=== PATIENT | male | born 1995 | race Caucasian/White ===

== ENCOUNTER 2021-11-09 21:50 | Emergency (ER) | payer OTHER, SELFPAY ==
[2021-11-09 21:53] VITALS: BP 123/63; PULSE 85; RESP 18; TEMP 36.2; O2SAT 100
[2021-11-09 22:03] VITALS: BP 131/76; PULSE 80; RESP 16; TEMP 36.9; O2SAT 96
[2021-11-09 23:00] VITALS: BP 100/64; PULSE 75; RESP 14; O2SAT 97
--- NOTE | 2021-11-10 00:06 | ECG_ITS ---
Measurements Intervals [place] Rate: 69 P: 87 NM: 137 QRS: 81 QRSD: 90 T: 68 QT: 361 QTc: 388 Interpretive Statements SINUS RHYTHM ST ELEVATION IN ANT/INF LEADS- PROBABLY EARLY REPOLARIZATION BASELINE ARTIFACT- I, III, AVL BORDERLINE ECG Electronically Signed On 11-10-2021 7:11:30 OPHTHALMIC SURGEON by Matteo Edgar D.O.
[2021-11-10 00:17] VITALS: BP 103/65; PULSE 74; RESP 16; O2SAT 95
[2021-11-10] MEDS: SODIUM CHLORIDE 0.9% IV 1,000 ML 999 ML IV CONT (00:23)
[2021-11-10 00:27] VITALS: BP 111/75; PULSE 75
[2021-11-10 00:28] VITALS: BP 120/88; PULSE 77
[2021-11-10 00:29] LABS: Basophils Absolute Auto 0.1 K/mm3 (0.0-0.1); Basophils Percent Auto 0.9 % (0.2-1.2); Eosinophils Absolute Auto 0.5 K/mm3 (0-0.3); Eosinophils Percent Auto 4.3 % (0-4.4); Hematocrit 45.3 % (42.0-52.0); Hemoglobin 15.5 g/dL (14.0-18.0); Immature Granulocyte Absolute 0.05 K/mm3 (0.00-0.031); Immature Granulocyte Percent A 0.5 % (0-0.5); Lymphocytes Absolute Auto 1.79 K/mm3 (0.9-3.2); Lymphocytes Percent Auto 17.3 % (18.3-44.2); Mean Corpuscular HGB Conc 34.2 g/dl (32-36); Mean Corpuscular Hemoglobin 28.7 pg (26-34); Mean Corpuscular Volume 83.9 fl (80-100); Mean Platelet Volume 9.5 fl (7.4-10.4); Monocytes Absolute Auto 0.5 K/mm3 (0.1-0.6); Monocytes Percent Auto 4.6 % (2.6-8.5); Neutrophils Absolute Auto 7.5 K/mm3 (1.3-6.7); Neutrophils Percent Auto 72.4 % (45.5-73.1); Platelet Count Result 287 k/mm3 (150-375); Red Cell Distribution Width 12.6 % (11.5-14.5); White Blood Count 10.4 K/mm3 (4.5-10.0)
[2021-11-10 00:30] VITALS: BP 108/72; PULSE 78
[2021-11-10 00:39] LABS: Alanine Aminotransferase 41 U/L (4-50); Albumin Level 4.4 g/dL (3.5-5.1); Alkaline Phosphatase 78 U/L (38-126); Anion Gap 8 mmol/L (8-16); Aspartate Amino Transferase 35 U/L (17-59); Bilirubin,Total 0.3 mg/dL (0.2-1.3); Blood Urea Nitrogen 14 mg/dL (9-20); Calcium 9.5 mg/dL (8.4-10.2); Carbon Dioxide 23 mmol/L (22-30); Chloride 106 mmol/L (98-107); Estimated CRCL calculation 93 ml/min; Estimated Glomerular Filt Rate > 60; Glucose 102 mg/dL (65-110); Potassium 4.3 mmol/L (3.4-5.0); Sodium 137 mmol/L (137-145)
--- NOTE | 2021-11-10 01:02 | ED.GENADULT ---
HPI - General Adult General Chief complaint: Dizziness Stated complaint: Near syncope Time Seen by Provider: 11/09/21 23:34 History of Present Illness HPI narrative: Patient is a 26-year-old male who presents ER with lightheadedness. Reports she was laying in bed when he began to have some ringing in his ear. He then got up and started having tunnel vision as he walked to find his mother. He had no loss of consciousness but did fall to his knees. Reports this lasted about 2 to 3 minutes. He does endorse smoking marijuana this evening but it was several hours prior to onset of symptoms. Reports he has not had much to eat or drink today either. No history of arrhythmia. No chest pain/pressure or shortness of breath. He did feel like he had an elevated heart rate. Patient also reports cramping in his left foot over the last couple days. No pain at this time. Related Data Home Medications Medication Instructions Recorded Confirmed No Home Medications 11/09/21 11/09/21 Allergies Allergy/AdvReac Type Severity Reaction Status Date / Time morphine Allergy Unknown Unknown Unverified 11/09/21 22:06 Review of Systems Review of Systems: All systems reviewed & are unremarkable except as noted in HPI and below Constitutional: Constitutional: Denies chills, Denies fever(s) and Reports weakness ENT: Denies nasal congestion and Denies sore throat Comments: Tinnitus Cardiovascular: Cardiovascular: Denies chest pain, Reports rapid heart rate and Denies radiating jaw, neck or arm pain Respiratory: Respiratory: Denies cough and Denies dyspnea Gastrointestinal: Gastrointestinal: Denies abdominal pain, Denies nausea and Denies vomiting Neurologic: Reports dizziness, Denies headache(s), Denies focal weakness and Denies numbness PMFSH Past Medical History Medical History (Updated 11/10/21 @ 02:15 by Dimitry Rios MD) Healthy adult male Surgical History Surgical History (Updated 11/10/21 @ 01:04 by Dimitry Rios MD) H/O inguinal hernia repair Social History Social History (Updated 11/10/21 @ 01:05 by Dimitry Rios MD) Substance use type: marijuana Exam Narrative: GENERAL: Well-appearing, well-nourished, and in no acute distress. HEAD: Normocephalic, atraumatic. EYES: PERRL and EOMI. CHEST: Clear to auscultation. No respiratory distress. HEART: Regular rate and rhythm. Normal peripheral pulses. ABDOMEN: Soft, nontender, nondistended. EXTREMITIES: Normal range of motion. No edema. SKIN: Warm, dry, no rash. NEURO: Alert and oriented x3. PSYCH: Normal mood and affect. Course Course Emergency Course: Unremarkable evaluation. Return precautions given. Discharge home. Vital Signs Vital signs: Vital Signs Temperature 97.2 F L 11/09/21 21:53 Pulse Rate 85 11/09/21 21:53 Respiratory Rate 18 11/09/21 21:53 Blood Pressure 123/63 11/09/21 21:53 Pulse Oximetry 100 11/09/21 21:53 Temperature 98.4 F 11/09/21 22:03 Pulse Rate 64 11/10/21 01:17 Respiratory Rate 18 11/10/21 01:17 Blood Pressure 110/85 11/10/21 01:17 Pulse Oximetry 98 11/10/21 01:17 Medical Decision Making Vital Signs Vital Signs: Vital Signs Temperature 97.2 F L 11/09/21 21:53 Pulse Rate 85 11/09/21 21:53 Respiratory Rate 18 11/09/21 21:53 Blood Pressure 123/63 11/09/21 21:53 Pulse Oximetry 100 11/09/21 21:53 Temperature 98.4 F 11/09/21 22:03 Pulse Rate 64 11/10/21 01:17 Respiratory Rate 18 11/10/21 01:17 Blood Pressure 110/85 11/10/21 01:17 Pulse Oximetry 98 11/10/21 01:17 Lab Data Result diagrams: 11/10/21 00:24 11/10/21 00:24 Labs: Lab Results 11/10/21 11/10/21 Range/Units 00:24 00:24 WBC 10.4 H (4.5-10.0) K/mm3 RBC 5.40 (4.6-6.20) M/mm3 Hgb 15.5 (14.0-18.0) g/dL Hct 45.3 (42.0-52.0) % MCV 83.9 (80-100) fl MCH 28.7 (26-34) pg MCHC 34.2 (32-36) g/dl RDW 12.6 (11.5-14.5) % P
[2021-11-10 01:17] VITALS: BP 110/85; PULSE 64; RESP 18; O2SAT 98
[2021-11-10 02:40] VITALS: BP 113/72; PULSE 73; RESP 18; O2SAT 98
== END 2021-11-10 02:40 | disposition home or self-care (01) ==
PROVIDERS: Emergency Provider Emergency Medicine
DX: R55 Syncope and collapse (principal); R94.31 Abnormal electrocardiogram [ECG] [EKG]
CPT/HCPCS: 36415; 80053; 85025; 93005; 96360; 99284; J7030